=== PATIENT | male | born 1960 | race African-American/Black ===

== ENCOUNTER 2022-07-17 01:09 | Emergency (ER) | payer BC, OTHER ==
[~2022-07-17] VITALS: Ht 182.9 cm; Wt 106.1 kg
[~2022-07-17 01:09] MED LIST: PEPCID20 MG PO
[2022-07-17] MEDS ORDERED: FAMOTIDINE 20 MG/2 ML VIAL IV STA (02:16)
[2022-07-17] MEDS ORDERED: BELLADONNA ALK/PHENOBARBITAL 5 ML UDC PO ONE (02:45)
[2022-07-17] MEDS ORDERED: MAGNESIUM/ALUMINUM/SIMETHICONE 30 ML UDC PO ONE (02:45)
[2022-07-17] MEDS ORDERED: MAGNESIUM/ALUMINUM/SIMETHICONE 30 ML UDC ONE (03:00)
[2022-07-17] MEDS ORDERED: BELLADONNA ALK/PHENOBARBITAL 5 ML UDC ONE (03:00)
[2022-07-17] MEDS ORDERED: FAMOTIDINE 20 MG/2 ML VIAL IV ONE (03:01)
[2022-07-17] MEDS ORDERED: PANTOPRAZOLE SO40 MG PO (04:19)
[2022-07-17 04:35] VITALS: BP 163/80
== END 2022-07-17 04:35 | disposition home or self-care (01) ==
LOC: FSED 01:14
DX: R07.89 Other chest pain (principal); K21.9 Gastro-esophageal reflux disease without esophagitis; I10 Essential (primary) hypertension; E78.5 Hyperlipidemia, unspecified
CPT/HCPCS: 71046; 80053; 82553; 84484; 85025; 85379; 93005; 99284